=== PATIENT | male | born 1965 | race Caucasian/White ===

== ENCOUNTER 2017-05-18 22:55 | Emergency (ER) | payer SELFPAY ==
[~2017-05-18] VITALS: Ht 172.7 cm; Wt 86.9 kg
--- NOTE | 2017-05-18 23:45 | NUR ---
Dr. Wall at bedside for MSE, awaiting further orders.
[2017-05-19 00:19] LABS: BASOPHILS # (AUTO) 0.1 K/uL (0.0-8.0); BASOPHILS % (AUTO) 0.7 % (0.0-2.0); EOSINOPHILS # (AUTO) 0.4 K/uL (0.0-0.7); EOSINOPHILS % (AUTO) 4.3 % (0.0-7.0); HEMATOCRIT 43.6 % (40-50); HEMOGLOBIN 14.8 G/DL (14.0-18.0); LYMPHOCYTES # (AUTO) 3.1 K/UL (0.8-4.8); MEAN CORPUSCULAR HEMOGLOBIN 30.4 UUG (27.0-31.0); MEAN CORPUSCULAR HGB CONC 34 g/dL (32.0-37.0); MEAN CORPUSCULAR VOLUME 89.5 FL (82.0-92.0); MONOCYTES # (AUTO) 0.8 K/UL (0.1-1.30); MONOCYTES % (AUTO) 7.6 % (0.0-11.0); NEUTROPHILS # (AUTO) 5.7 K/UL (1.8-8.9); NEUTROPHILS % (AUTO) 56.4 % (38.5-71.5); PLATELET COUNT (AUTO) 209 K/UL (150-450); RED BLOOD CELL COUNT(AUTO) 4.88 MIL/UL (4.7-6.1); WHITE BLOOD COUNT (AUTO) 10.1 K/UL (4.0-11.2)
--- NOTE | 2017-05-19 00:19 | NUR ---
Pt medicated for discomfort, will monitor for effects of medication. Pt resting in position of comfort for self. Fluid bolus infusing freely to gravity
[2017-05-19 00:29] LABS: CREATININE 1.1 mg/dL (0.6-1.3)
[2017-05-19 00:35] LABS: BILIRUBIN,DIRECT 0.1 mg/dL (0.0-0.2); BILIRUBIN,TOTAL 0.2 mg/dL (0.2-1.0)
--- NOTE | 2017-05-19 01:45 | NUR ---
Pt to and from radiology [facility] [employer]. Pt cont to c/o severe pain. Pt medicated for discomfort, will monitor for effects of medication. Pt repositioned for comfort.
--- NOTE | 2017-05-19 02:30 | NUR ---
Sts generalized pain improved conts c/o severe pain to head and hand. MD aware, awaiting further orders. Pt resting in positioned of comfort for self.
--- NOTE | 2017-05-19 03:16 | NUR ---
Pt conts to c/o pain. Sts pain improved to all areas but was returning in head and hand. MD notified. Pt stable for discharge per MD. IV dc'd, catheter intact. Drsg applied. No problems noted to site. Pt given ACI. Pt verbalized understanding of dc instructions. Pt ambulated out of ER with slow steady gait and ride home.
[2017-05-19 03:20] VITALS: BP 117/88
== END 2017-05-19 03:20 | disposition home or self-care (01) ==
LOC: ER 22:56
DX: M54.2 Cervicalgia (principal); M79.642 Pain in left hand; M25.561 Pain in right knee; M25.562 Pain in left knee; I10 Essential (primary) hypertension; F17.210 Nicotine dependence, cigarettes, uncomplicated
CPT/HCPCS: 36415; 70450; 71260; 72125; 73130; 73560 ×2; 74177; 80048; 80076; 83690; 85025; 85730; 96361 ×2; 96374; 96375; 96376; 99285; A4663; J1170; J2270; J2405 ×2; J7030; J7050; Q9967